=== PATIENT | female | born 1990 | race Caucasian/White ===

== ENCOUNTER 2017-01-11 22:10 | Emergency (ER) | payer OTHER ==
[~2017-01-11] VITALS: Ht 170.2 cm; Wt 95.5 kg
[2017-01-12] MEDS ORDERED: NORCO, ANEXSIA 5/325MG TABLET (HYDROcodone/ACETAMINOPHEN) PO ONE (01:00)
[2017-01-12] MEDS ORDERED: IBUPROFEN 800 MG TAB PO ONE (01:00)
[2017-01-12] MEDS ORDERED: PRED20TA PO (01:11)
[2017-01-12] MEDS ORDERED: NORC1TAB4 PO (01:11)
[2017-01-12 01:19] VITALS: BP 120/72
--- NOTE | 2017-01-12 09:22 | REP ---
REASON: Pain. COMPARISON: 01/25/2006 FINDINGS: The compartments are symmetric and relatively well maintained. There is no acute fracture or destructive osseous lesion. There has been no significant change. Signed by Salazar Blackburn DO 01/12/2017 09:39 A
== END 2017-01-12 01:40 | disposition home or self-care (01) ==
LOC: M ED 22:10
DX: M23.91 Unspecified internal derangement of right knee (principal)

== ENCOUNTER 2017-03-29 07:49 | Day surgery (SDC) | payer OTHER ==
[~2017-03-29] VITALS: Ht 170.2 cm; Wt 97.1 kg
[~2017-03-29 07:49] MED LIST: NORC1TAB4 PO; PRED20TA PO
[2017-03-29] MEDS ORDERED: LR 1,000 ML IV ONE (08:00)
[2017-03-29] MEDS ORDERED: CLINDAMYCIN 600 MG in APPROPRIATE DILUENT 1 EA IV ONE ×2 (08:15→12:45)
[2017-03-29] MEDS ORDERED: LIDOCAINE 1% MDV 20ML VIAL SQ PRN (08:15)
[2017-03-29 08:50] LABS: CONTROL LINE UCG INT CTR LINE PRESENT
[2017-03-29] MEDS ORDERED: ROPIvacaine 0.5% 30 ML INJECTION (J2795 PER 1MG) As Ordered ONE (10:51)
[2017-03-29] MEDS ORDERED: MIDAZOLAM INJ 2 MG/2 ML VIAL (J2250) As Ordered ONE (11:14)
[2017-03-29] MEDS ORDERED: fentaNYL 250 MCG/5 ML INJECTION (J3010) As Ordered ONE (11:14)
[2017-03-29] MEDS ORDERED: BUPIVACAINE HCL 0.5% 30 ML VIAL As Ordered ONE (11:30)
[2017-03-29] MEDS ORDERED: KETOROLAC 60 MG/2 ML VIAL (J1885) As Ordered ONE (11:34)
[2017-03-29] MEDS ORDERED: PHENYLephrine HCL 500 MCG/5 ML (100MCG/ML) SYRINGE (J2370) As Ordered ONE (11:34)
[2017-03-29] MEDS ORDERED: dexameTHASONE 4 MG/ML 1ML VIAL (J1100) As Ordered ONE (11:34)
[2017-03-29] MEDS ORDERED: PROPOFOL 200 MG/20 ML VIAL As Ordered ONE (11:34)
[2017-03-29] MEDS ORDERED: LIDOCAINE 2% INJ 100 MG/5 ML SDV (FOR ANES.) As Ordered ONE (11:34)
[2017-03-29] MEDS ORDERED: ONDANSETRON 4MG/2ML VIAL (J2405) As Ordered ONE ×2 (11:34→12:31)
[2017-03-29] MEDS ORDERED: METOCLOPRAMIDE INJ 10MG/2ML VIAL (J2765) As Ordered ONE ×2 (11:34→12:59)
[2017-03-29] MEDS ORDERED: fentaNYL 100 MCG/2 ML INJECTION (J3010) IV PRN (12:45)
[2017-03-29] MEDS ORDERED: ONDANSETRON 4MG/2ML VIAL (J2405) IV PRN (12:45)
[2017-03-29] MEDS ORDERED: MEPERIDINE INJ 25 MG/ML VIAL (J2175) IV PRN (12:45)
[2017-03-29] MEDS ORDERED: LR 1,000 ML IV SCH ×2 (12:45→13:15)
[2017-03-29] MEDS ORDERED: METOCLOPRAMIDE INJ 10MG/2ML VIAL (J2765) IV ONE (13:15)
[2017-03-29 14:05] VITALS: BP 106/65
--- NOTE | 2017-04-02 16:39 | RO ---
DATE OF PROCEDURE: 03/29/2017 PREPROCEDURE DIAGNOSIS: Right knee patellar chondral defect. POSTPROCEDURE DIAGNOSIS: Right knee patellar chondral defect. PROCEDURE: Right knee arthroscopy with chondroplasty of the patella. SURGEON: Dr. Arnold Spann WASTE/MATERIALS EXCHANGE SPECIALIST: None. ANESTHESIA: General. IV FLUIDS: Lactated Ringer's. ESTIMATED BLOOD LOSS: 5 mL. CLOSURE: Nylon. INDICATIONS: Hayden is a 26-year-old female with many years of right anterior knee pain. She denied patellar dislocations. On exam, she had tenderness at the lateral patellar facet and pain with patellar compression. After failing nonoperative treatment, an MRI was obtained which revealed a large chondral flap in the central patella. We had a long conversation about operative options, including chondroplasty, debridement versus internal fixation of the chondral flap, versus cartilage repair. My recommendation was to perform a chondroplasty but potentially an open internal fixation with chondral darts if amenable. I recommended holding off on the larger tibial tubercle osteotomy with cartilage repair if she failed a lesser procedure. The patient agreed, and we had a conversation about the risks and benefits as well as the difference in recovery and risks. Consent obtained. DESCRIPTION OF PROCEDURE: The patient was identified in the preoperative holding area and the right knee signed by myself. She was brought to the operating room, placed supine on the well-padded operating room (OR) table. General anesthesia induced without complications. She received appropriate intravenous (IV) antibiotics within 1 hour of incision. A Venodyne boot on the left lower extremity and a well-padded tourniquet applied to the right thigh. Examination under anesthesia revealed range of motion from -3 to 140 degrees. There was a slightly positive J sign. She had three quadrants of lateral patellar mobility with a firm endpoint, 1-1/2 quadrants medial patellar mobility. I was able to wanda the patella past neutral. Grade 1A Eli's, stable to varus and valgus stress. The right leg was then prepped and draped in the normal sterile fashion. Prior to incision, a time-out was performed in which myself and all OR staff confirmed the patient's name, medical record number, date of and the correct side, site and procedure. The right leg was exsanguinated with an Esmarch bandage, and the tourniquet inflated to 250 mmHg. The knee was insufflated with 30 mL of lactated Ringer's with spinal needle. Standard anterolateral portal made with an #11 blade. A 30-degree arthroscope introduced into the joint, and there were no loose bodies. There was what appeared to be a full thickness flap in the distal one-third to central patella, primarily involving the central and medial aspect of the patella. The proximal one-third and lateral one-third of the patella were in excellent condition. No damage to the trochlea. No loose bodies in the gutters. The medial compartment was entered where the chondral surfaces were in great condition. No meniscus tears. The anterior cruciate ligament (ACL) was obscured by ligamentum mucosum. The knee was brought into [id number] position where there were no loose bodies, no lateral meniscus tears and the cartilage was in great condition. An anteromedial portal was made under direct visualization and on probing, there were no tears in the medial meniscus. The shaver was used to debride the ligamentum mucosum and then the ACL was inspected and was found to be under great tension. Lateral compartment was probed, there was some softening of the lateral tibial plateau but no frayed cartilage and no lateral meniscus tears. A probe was used to manipulate the chondral flap, and it was found to approach but no violate the calcified cartilage. There was no blood supply into the level that the chondral darts would be seated. This was not amenable to any type of internal fixation. The surrounding area of cartilage to the flap was softened and cracked. As planned, I then proceeded with a chondroplasty. I used the meniscal punch to remove the unstable flap and then the shaver used to remove loose pieces. The shaver was used to remove all loose pieces of cartilage that were threatening to break off. The calibrated probe was then used to measure the size of the defect, which was approximately 2 x 2 cm. There was a very good chance I will come back to perform a cartilage repair and a tibial tubercle osteotomy, and at that time, I would need to create high triplett. After removing unhealthy neighboring cartilage, this would easily create a defect 2-1/2 x 2-1/2 cm. The shaver was used to remove all loose fragments. On final probing, there were no loose fragments of cartilage. I then inspected the medial and lateral gutters again where there were several additional chondral fragments and those were all removed. The knee was irrigated and drained. Tourniquet let down with excellent reperfusion. Portals closed with nylon suture. I then injected 30 mL of 0.50% Marcaine without epinephrine. Bulky sterile bandage applied. She was awoken from general anesthesia and transferred back to the post-anesthesia care unit (PACU) in stable condition. Complications: None. All counts correct times two. The patient will be weightbearing as tolerated with crutches as needed and aspirin for deep vein thrombosis (DVT) prophylaxis.
== END 2017-03-29 14:25 | disposition home or self-care (01) ==
LOC: M SDC 07:49
PROVIDERS: ATTEND Orthopaedic Surgery
DX: M24.10 Other articular cartilage disorders, unspecified site (principal); K58.9 Irritable bowel syndrome, unspecified; Z88.0 Allergy status to penicillin

== ENCOUNTER → 2017-05-20 | Day surgery (SDC) | payer OTHER ==
[~2017-05-20] MED LIST changes: +EPINEPHrine INJ 1 MG/ML 1ML AMP; +GLYCOPYRROLATE INJ 0.2 MG/ML 2 ML VIAL As Ordered; +HYDROmorphone HCL 1 MG/ML SYRINGE (J1170) As Ordered; +KETOROLAC 60 MG/2 ML VIAL (J1885) As Ordered; +LIDOCAINE 2% INJ 100 MG/5 ML SDV (FOR ANES.) As Ordered; +LR 1,000 ML IV; +METOCLOPRAMIDE INJ 10MG/2ML VIAL (J2765) As Ordered; +MIDAZOLAM INJ 2 MG/2 ML VIAL (J2250) As Ordered; +NEOSTIGMINE 10 MG/10 ML VIAL (J2710) As Ordered; -NORC1TAB4 PO; +NORCO, ANEXSIA 5/325MG TABLET (HYDROcodone/ACETAMINOPHEN) As Ordered; +ONDANSETRON 4MG/2ML VIAL (J2405) As Ordered; +ONDANSETRON 4MG/2ML VIAL (J2405) IV; -PRED20TA PO; +PROMETHAZINE INJ 25 MG/ML VIAL (J2550) As Ordered; +PROPOFOL 200 MG/20 ML VIAL As Ordered; +ROCURONIUM BROMIDE 50 MG/5 ML VIAL As Ordered; +ROPIvacaine 0.5% 30 ML INJECTION (J2795 PER 1MG); +dexameTHASONE 10 MG/1 ML VIAL PRES.FREE (J1100); +dexameTHASONE 4 MG/ML 1ML VIAL (J1100) As Ordered; +fentaNYL 100 MCG/2 ML INJECTION (J3010) As Ordered; +fentaNYL 250 MCG/5 ML INJECTION (J3010) As Ordered
[2017-05-20] MEDS: LR 1,000 ML IV (08:22)
[2017-05-20 08:29] LABS: CONTROL LINE UCG INT CTR LINE PRESENT; URINE PREG TEST NEGATIVE (NEGATIVE)
[2017-05-20] MEDS: fentaNYL 100 MCG/2 ML INJECTION (J3010) IV ×5 (09:38→15:05)
[2017-05-20] MEDS: MIDAZOLAM INJ 2 MG/2 ML VIAL (J2250) IV (09:38)
[2017-05-20] MEDS: VANCOMYCIN HCL 1,000 MG, VIAL MATE ADAPTER 1 EACH in D5W 250 ML IV (10:05)
[2017-05-20] MEDS: PROMETHAZINE INJ 25 MG/ML VIAL (J2550) IV (14:46)
[2017-05-20] MEDS: NORCO, ANEXSIA 5/325MG TABLET (HYDROcodone/ACETAMINOPHEN) PO ×2 (14:55→15:25)
[2017-05-20] MEDS: HYDROmorphone HCL 1 MG/ML SYRINGE (J1170) IV ×5 (15:40→16:18)
== END | disposition home or self-care (01) ==
LOC: M SDC 07:34
DX: M95.8 Other specified acquired deformities of musculoskeletal system (principal); K21.9 Gastro-esophageal reflux disease without esophagitis; K58.8 Other irritable bowel syndrome; Z88.0 Allergy status to penicillin
CPT/HCPCS: 27415

== ENCOUNTER → 2017-09-28 | Outpatient (CLI) | payer OTHER | LOC: M RAD 12:05 | DX: Z47.89 Encounter for other orthopedic aftercare (principal); R60.0 Localized edema | CPT/HCPCS: 73721 ==

== ENCOUNTER → 2020-04-29 | Outpatient (CLI) | payer SELFPAY ==
[~2020-04-29] MED LIST changes: -EPINEPHrine INJ 1 MG/ML 1ML AMP; -GLYCOPYRROLATE INJ 0.2 MG/ML 2 ML VIAL As Ordered; -HYDROmorphone HCL 1 MG/ML SYRINGE (J1170) As Ordered; -KETOROLAC 60 MG/2 ML VIAL (J1885) As Ordered; -LIDOCAINE 2% INJ 100 MG/5 ML SDV (FOR ANES.) As Ordered; -LR 1,000 ML IV; -METOCLOPRAMIDE INJ 10MG/2ML VIAL (J2765) As Ordered; -MIDAZOLAM INJ 2 MG/2 ML VIAL (J2250) As Ordered; -NEOSTIGMINE 10 MG/10 ML VIAL (J2710) As Ordered; +NORC1TAB7 PO; -NORCO, ANEXSIA 5/325MG TABLET (HYDROcodone/ACETAMINOPHEN) As Ordered; -ONDANSETRON 4MG/2ML VIAL (J2405) As Ordered; -ONDANSETRON 4MG/2ML VIAL (J2405) IV; +PRED20TA PO; -PROMETHAZINE INJ 25 MG/ML VIAL (J2550) As Ordered; -PROPOFOL 200 MG/20 ML VIAL As Ordered; -ROCURONIUM BROMIDE 50 MG/5 ML VIAL As Ordered; -ROPIvacaine 0.5% 30 ML INJECTION (J2795 PER 1MG); -dexameTHASONE 10 MG/1 ML VIAL PRES.FREE (J1100); -dexameTHASONE 4 MG/ML 1ML VIAL (J1100) As Ordered; -fentaNYL 100 MCG/2 ML INJECTION (J3010) As Ordered; -fentaNYL 250 MCG/5 ML INJECTION (J3010) As Ordered
== END ==
LOC: M LABSMTC 13:43
PROVIDERS: ATTEND Pediatrics
DX: Z20.822 Contact with and (suspected) exposure to COVID-19 (principal)

== ENCOUNTER → 2020-06-03 | Outpatient (REF) | payer OTHER ==
[2020-06-03 14:26] LABS: HEMOGLOBIN 12.5 g/dl (12.0-15.5); MEAN CORPUSCULAR HEMOGLOBIN 26.8 pg (27.0-33.0); MEAN CORPUSCULAR HGB CONC 31.3 g/dl (32.0-36.5); MEAN CORPUSCULAR VOLUME 85.8 fl (80.0-96.0); PLATELET COUNT, AUTOMATED 253 10^3/uL (150-450); RED BLOOD COUNT 4.66 10^6/uL (4.00-5.40); WHITE BLOOD COUNT 8.5 10^3/uL (4.0-10.0)
[2020-06-03 14:57] LABS: FREE T4 1.04 NG/DL (0.76-1.46); GLUCOSE CHALLENGE TEST 1 HOUR 120 MG/DL (LESS THAN 140); THYROID STIMULATING HORMONE 0.797 uIU/ML (0.358-3.740)
[2020-06-03 15:07] LABS: HEMOGLOBIN A1c 5.2 %
[2020-06-03 15:39] LABS: HEPATITIS C VIRUS ABY INDEX < 0.0 INDEX (<0.8)
[2020-06-03 15:40] LABS: HIV 1&2 SCREEN CENTAUR NEGATIVE (NEGATIVE)
== END ==
LOC: M PLALAB 12:14
PROVIDERS: ATTEND Advanced Practice Midwife
DX: Z3A.08 8 weeks gestation of pregnancy (principal)

== ENCOUNTER → 2020-07-27 | Outpatient (CLI) | payer OTHER | LOC: M WHC 08:36 | PROVIDERS: ATTEND Obstetrics & Gynecology | DX: Z36.89 Encounter for other specified antenatal screening (principal); Z3A.16 16 weeks gestation of pregnancy; Z53.8 Procedure and treatment not carried out for other reasons ==

== ENCOUNTER → 2020-09-30 | Outpatient (CLI) | payer OTHER ==
--- NOTE | 2020-09-30 09:11 | REP ---
INDICATION: ANATOMY. COMPARISON: None. TECHNIQUE: Transabdominal obstetric sonography. FINDINGS: Scanning through the gravid uterus demonstrates a viable single intrauterine gestation in cephalic lie. motion is observed and heart rate is recorded at 146 beats per minute. A posterior placenta is seen, grade 1, without evidence of placenta previa. Closed cervical length is measured at 3.4 cm transabdominally. No extrauterine abnormality is observed. Amniotic fluid is subjectively normal. No anomaly is seen. The following anatomic structures are identified and felt to be sonographically unremarkable: cranium, choroid plexus, cavum, cerebellum and posterior fossa, face and profile, lungs, four-chamber heart with left and right ventricular outflow tract views, diaphragm, left-sided stomach, abdominal wall cord insertion, three-vessel umbilical cord, kidneys and bladder, spine, and upper and lower extremities. Biometry chart: BPD 6.5 cm, 26 weeks 2 days Head circumference 23.6 cm, 25 weeks 4 days Abdominal circumference 21.2 cm, 25 weeks 5 days Femur length 4.8 cm, 25 weeks 6 days Humeral length 4.6 cm, 27 weeks 1 day HC AC ratio normal 1.11 Cephalic index normal 0.77 Estimated weight 857 g, 1 lb 14 oz, 37th percentile for 25 weeks 6 days IMPRESSION: Viable single intrauterine gestation at 26 weeks 1 days by today's composite sonographic criteria. ANG by today's sonography 05 January 2021. No complication identified. Expected gestational age estimate from known ANG of 07 January 2021 is 25 weeks 6 days. <Electronically signed by Papa Mcghee > 09/30/20 [id number]
== END ==
LOC: M WHC 07:26
PROVIDERS: ATTEND Advanced Practice Midwife
DX: Z36.89 Encounter for other specified antenatal screening (principal); Z3A.25 25 weeks gestation of pregnancy

== ENCOUNTER → 2020-11-04 | Outpatient (CLI) | payer OTHER ==
[2020-11-04 13:15] LABS: HEMATOCRIT 34.9 % (36.0-47.0); HEMOGLOBIN 11.3 g/dl (12.0-15.5); MEAN CORPUSCULAR HEMOGLOBIN 27.7 pg (27.0-33.0); MEAN CORPUSCULAR HGB CONC 32.4 g/dl (32.0-36.5); MEAN CORPUSCULAR VOLUME 85.5 fl (80.0-96.0); PLATELET COUNT, AUTOMATED 220 10^3/uL (150-450); RED BLOOD COUNT 4.08 10^6/uL (4.00-5.40)
== END ==
LOC: M PLALAB 10:12
PROVIDERS: ATTEND Advanced Practice Midwife
DX: O99.212 Obesity complicating pregnancy, second trimester (principal); E66.9 Obesity, unspecified; Z3A.00 Weeks of gestation of pregnancy not specified

== ENCOUNTER → 2020-11-14 | Outpatient (CLI) | payer OTHER ==
[~2020-11-14] MED LIST changes: +ACET325C5 PO; +CARA1TAB6 PO; +OMEP10CASR PO; +PRENTAB9 PO
== END ==
LOC: M LAB 07:58
PROVIDERS: ATTEND Advanced Practice Midwife
DX: O99.810 Abnormal glucose complicating pregnancy (principal)

== ENCOUNTER → 2020-11-17 | Outpatient (CLI) | payer OTHER ==
[~2020-11-17] MED LIST changes: -ACET325C5 PO; -CARA1TAB6 PO; -OMEP10CASR PO; -PRENTAB9 PO
--- NOTE | 2020-11-17 16:08 | REP ---
INDICATION: GROWTH PROBLEM SUSPECTED BUT NOT FOUND. COMPARISON: 11/17/2020 TECHNIQUE: Transabdominal FINDINGS: Multiple ultrasonographic images of the gravid uterus shows a single living intrauterine gestation in the cephalic presentation. Doppler interrogation of the heart shows a heart rate of 132 beats per minute. The placenta is posterior and not low-lying. Secondary to the low position of the head a cervical length could only be estimated at 3.78 cm. Doppler interrogation of the umbilical artery shows an A\B ratio of 2.77. This is within the normal range. The subjective amniotic fluid volume is within normal limits. The calculated amniotic fluid index is 15.7 with an expected range 8.4 to 24.4. BPD: 8.3 cm 33 weeks 2 days HC: 30.1 cm 33 weeks 3 days AC: 28.5 cm 32 weeks 4 days FL: 6.3 cm 32 weeks 5 days The estimated weight is 2045 g which is at the 42nd percentile for a 32 week 5 day gestational age. IMPRESSION: Single living intrauterine gestation as described above with an estimated gestational age of 33 weeks 0 days via composite criteria and an estimated date of delivery of 01/05/2021 by today's exam. <Electronically signed by Salazar Blackburn > 11/17/20 [id number]
== END ==
LOC: M WHC 13:14
PROVIDERS: ATTEND Obstetrics & Gynecology
DX: Z03.74 Encounter for suspected problem with fetal growth ruled out (principal); Z3A.33 33 weeks gestation of pregnancy

== ENCOUNTER → 2020-12-09 | Outpatient (REF) | payer OTHER | LOC: M SFHCWAGY 17:26 | PROVIDERS: ATTEND Obstetrics & Gynecology | DX: Z36.89 Encounter for other specified antenatal screening (principal); Z3A.35 35 weeks gestation of pregnancy ==

== ENCOUNTER 2023-02-25 21:53 | Emergency (ER) | payer OTHER ==
[~2023-02-25] VITALS: Ht 170.2 cm; Wt 125.5 kg
[~2023-02-25 21:53] MED LIST changes: +ACET325C5 PO; +CARA1TAB6 PO; +OMEP10CASR PO; +PRENTAB9 PO
[2023-02-25] MEDS ORDERED: MAALOX 30 ML SUSP *UDC PO ONE (22:55)
[2023-02-25] MEDS ORDERED: PANTOPRAZOLE 40MG VIAL IV ONE (22:55)
[2023-02-25 23:20] LABS: BASO % 0.4 % (0.0-1.0); EOS # 0.1 10^3/uL (0.0-0.5); HEMATOCRIT 40.3 % (36.0-47.0); HEMOGLOBIN 13.6 g/dl (12.0-15.5); LYMPH # 3.6 10^3/uL (1.5-5.0); LYMPH % 37.3 % (24.0-44.0); MEAN CORPUSCULAR HGB CONC 33.7 g/dl (32.0-36.5); MEAN CORPUSCULAR VOLUME 80.1 fl (80.0-96.0); MONO # 0.7 10^3/uL (0.0-0.8); MONO % 7.1 % (2.0-8.0); NEUTROPHILS # 5.2 10^3/uL (1.5-8.5); NEUTROPHILS % 53.9 % (36.0-66.0); PLATELET COUNT, AUTOMATED 275 10^3/uL (150-450); RED BLOOD COUNT 5.03 10^6/uL (4.00-5.40); WHITE BLOOD COUNT 9.6 10^3/uL (4.0-10.0)
[2023-02-25 23:50] LABS: HCG, SERUM QUALITATIVE NEGATIVE (NEGATIVE)
[2023-02-25 23:58] LABS: LIPASE 30 U/L (12-53)
[2023-02-26 00:01] LABS: ALBUMIN 3.2 G/DL (3.2-5.2); ALKALINE PHOSPHATASE 90 U/L (46-116); ALT/SGPT 17 U/L (7.0-40); AST/SGOT 17 U/L (<34); BILIRUBIN,DIRECT < 0.1 MG/DL (<0.4); BILIRUBIN,TOTAL < 0.2 MG/DL (0.3-1.2); BLOOD UREA NITROGEN 11 MG/DL (9-23); CALCIUM LEVEL 9.1 MG/DL (8.5-10.1); CARBON DIOXIDE LEVEL 23 MMOL/L (20-31); CHLORIDE LEVEL 105 MMOL/L (98-107); CK-MB VALUE MASS < 1.0 NG/ML (<3.6); CREATININE FOR GFR 0.71 MG/DL (0.55-1.30); GLOMERULAR FILTRATION RATE > 60.0 (>60); GLUCOSE, FASTING 97 MG/DL (60-100); POTASSIUM SERUM 4.4 MMOL/L (3.5-5.1); SODIUM LEVEL 137 MMOL/L (136-145); TOTAL PROTEIN 6.8 G/DL (5.7-8.2)
[2023-02-26 00:08] LABS: CPK CREATINE PHOSPHOKINASE 64 U/L (34-145); MB/CK RELATIVE INDEX 1.56 (< OR =4)
[2023-02-26] MEDS ORDERED: ISOVUE-370 76% 100ML VIAL As Ordered ONE (00:30)
[2023-02-26 01:00] VITALS: TEMP 97.8
[2023-02-26 01:30] VITALS: BP 146/84; O2SAT 99
[2023-02-26] MEDS ORDERED: PANT40TA29 PO (02:01)
== END 2023-02-26 02:09 | disposition home or self-care (01) ==
LOC: M ED 21:53
DX: R10.13 Epigastric pain (principal); Z88.0 Allergy status to penicillin; Z88.1 Allergy status to other antibiotic agents
CPT/HCPCS: 71275; 74177; 80048; 80076; 82550; 82553; 83690; 84484; 84703; 85025; 93005; 93041; 96374; 99284; C9113; Q9967

== ENCOUNTER → 2023-04-05 | Outpatient (CLI) | payer OTHER ==
[~2023-04-05] MED LIST changes: +PANT40TA29 PO
[2023-04-05 13:42] LABS: BASO % 0.4 % (0.0-1.0); EOS # 0.1 10^3/uL (0.0-0.5); EOS % 0.7 % (0.0-3.0); HEMOGLOBIN 13.7 g/dl (12.0-15.5); LYMPH # 2.2 10^3/uL (1.5-5.0); LYMPH % 32.3 % (24.0-44.0); MEAN CORPUSCULAR HGB CONC 32.6 g/dl (32.0-36.5); MEAN CORPUSCULAR VOLUME 82.7 fl (80.0-96.0); MONO # 0.5 10^3/uL (0.0-0.8); MONO % 7.8 % (2.0-8.0); NEUTROPHILS # 4.1 10^3/uL (1.5-8.5); NEUTROPHILS % 58.7 % (36.0-66.0); PLATELET COUNT, AUTOMATED 242 10^3/uL (150-450); RED BLOOD COUNT 5.08 10^6/uL (4.00-5.40); WHITE BLOOD COUNT 6.9 10^3/uL (4.0-10.0)
[2023-04-05 13:56] LABS: HEMOGLOBIN A1c 5.5 % (4.0-6.0)
[2023-04-05 13:58] LABS: ALBUMIN 3.2 G/DL (3.2-5.2); ALKALINE PHOSPHATASE 82 U/L (46-116); ALT/SGPT 14 U/L (7.0-40); AST/SGOT 9 U/L (<34); BILIRUBIN,TOTAL 0.3 MG/DL (0.3-1.2); BLOOD UREA NITROGEN 13 MG/DL (9-23); CALCIUM LEVEL 8.5 MG/DL (8.5-10.1); CARBON DIOXIDE LEVEL 24 MMOL/L (20-31); CHLORIDE LEVEL 109 MMOL/L (98-107); CHOLESTEROL LEVEL 197 MG/DL (<200); CHOLESTEROL RISK RATIO 4.56 (<5); CREATININE FOR GFR 0.65 MG/DL (0.55-1.30); FREE T4 1.02 NG/DL (0.89-1.76); GLOMERULAR FILTRATION RATE > 60.0 (>60); GLUCOSE, FASTING 88 MG/DL (60-100); HDL CHOLESTEROL 43.2 MG/DL (>40); LDL CHOLESTEROL 135.6 MG/DL (<100); NON-HDL-C 153.8 MG/DL; POTASSIUM SERUM 4.5 MMOL/L (3.5-5.1); SODIUM LEVEL 139 MMOL/L (136-145); TOTAL PROTEIN 6.7 G/DL (5.7-8.2); TRIGLYCERIDES LEVEL 91 MG/DL (<150)
== END ==
LOC: M PLALAB 09:30
PROVIDERS: ATTEND Nurse Practitioner Adult Health
DX: E66.01 Morbid (severe) obesity due to excess calories (principal)